=== PATIENT | male | born 1970 | race Caucasian/White ===

== ENCOUNTER 2017-01-08 10:16 | Emergency (ER) | payer MEDICAID ==
[~2017-01-08] VITALS: Ht 188 cm; Wt 99.8 kg
[~2017-01-08 10:16] MED LIST: CLON1TAB4 PO; FLUO40CA49 PO; LEVO50TA8 PO; LISI40TA4 PO; TRAZ150T77 PO
[2017-01-08 10:18] VITALS: BP 118/77; PULSE 85; RESP 16; TEMP 97.5; O2SAT 100
[2017-01-08] MEDS ORDERED: BACITRACIN 1 GM OINT TP ONE (11:00)
[2017-01-08 11:40] VITALS: BP 121/75; PULSE 85; RESP 16; TEMP 98.2; O2SAT 99
== END 2017-01-08 11:40 | disposition home or self-care (01) ==
LOC: SED 10:16
DX: T23.322A Burn of third degree of single left finger (nail) except thumb, initial encounter (principal); E03.9 Hypothyroidism, unspecified; I10 Essential (primary) hypertension; Z53.20 Procedure and treatment not carried out because of patient's decision for unspecified reasons; X19.XXXA Contact with other heat and hot substances, initial encounter; Y93.89 Activity, other specified; Y99.8 Other external cause status; Y92.89 Other specified places as the place of occurrence of the external cause
CPT/HCPCS: 99283

== ENCOUNTER 2017-01-29 17:14 | Emergency (ER) | payer MEDICAID ==
[~2017-01-29] VITALS: Ht 188 cm; Wt 97.5 kg
[2017-01-29 17:29] VITALS: BP 122/76; PULSE 91; RESP 16; TEMP 97.5; O2SAT 97
--- NOTE | 2017-01-29 17:36 | NUR ---
Patient triaged and placed in waiting room. Patient appears in no acute distress at this time. Accompanied by FRIEND, awaiting available bed, and MD notified of need for MSE.
--- NOTE | 2017-01-29 18:42 | NUR ---
Pt placed to chair hallway 1
--- NOTE | 2017-01-29 19:43 | NUR ---
PT MOVED TO BED 6
[2017-01-29] MEDS ORDERED: CLINDAMYCIN 900 mg/50mL D5W 50 ML IV ONE (19:45)
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
[2017-01-29] MEDS ORDERED: NS 500 ML IV SCH ×2 (19:56)
--- NOTE | 2017-01-29 20:00 | NUR ---
# 20 gauge angiocath placed to R AC. Use of asceptic technique. Opsite placed over site. Blood return noted. Flushed with 10 cc of normal saline. No evidence of infiltration noted. Patient tolerated well.
[2017-01-29 20:23] LABS: BASOPHILS % (AUTO) 0.5 % (0.0-2.0); EOSINOPHILS # (AUTO) 0.1 K/uL (0.0-0.4); EOSINOPHILS % (AUTO) 1.8 % (0.0-4.0); HEMATOCRIT 42.8 % (36-54); HEMOGLOBIN 14.5 g/dL (14.0-18.0); LYMPHOCYTES # (AUTO) 2.3 K/uL (1.0-5.5); LYMPHOCYTES % (AUTO) 32.6 % (20.5-51.5); MEAN CORPUSCULAR HEMOGLOBIN 30 pg (27-31); MEAN CORPUSCULAR HGB CONC 34 % (32-36); MEAN CORPUSCULAR VOLUME 88 fL (79.0-98.0); MONOCYTES # (AUTO) 0.5 K/uL (0.0-1.0); MONOCYTES % (AUTO) 7.8 % (1.7-9.3); NEUTROPHILS # (AUTO) 4.1 K/uL (1.8-7.7); NEUTROPHILS % (AUTO) 57.3 % (40.0-70.0); PLATELET COUNT (AUTO) 255 K/uL (130-430); RED BLOOD CELL COUNT(AUTO) 4.85 MIL/uL (4.2-6.2); RED CELL DISTRIBUTION WIDTH 11.8 % (9.0-15.0)
[2017-01-29 20:25] LABS: CALCIUM 8.6 mg/dL (8.4-11.0); CREATININE 0.88 mg/dL (0.55-1.30); POTASSIUM 3.9 mmol/L (3.5-5.1)
[2017-01-29 20:30] LABS: ALBUMIN 4.2 g/dL (3.4-4.8); TOTAL PROTEIN, SERUM 7.9 g/dL (6.4-8.3)
[2017-01-29] MEDS ORDERED: NACL 0.9% 1,000 ML IV ONE (20:45)
[2017-01-29] MEDS ORDERED: LEVO75TA7 PO (21:24)
[2017-01-29] MEDS ORDERED: LISI-600 PO (21:25)
[2017-01-29] MEDS ORDERED: RISP1TAB7 PO (21:26)
[2017-01-29] MEDS ORDERED: TRAZ-126 PO (21:26)
--- NOTE | 2017-01-29 21:28 | NUR ---
MEDICINE RECONCILIATION DONE AND UPDATED
--- NOTE | 2017-01-29 22:00 | NUR ---
Pt is resting comfortably. VSS. AAOx4. No distress noted.
[2017-01-29] MEDS ORDERED: DIPH-TET-PERTUS Vaccine 0.5 ML VIAL (ADACEL) I.M. ONE (23:15)
--- NOTE | 2017-01-30 | NUR ---
Pt is resting comfortably. VSS. AAOx4. No distress noted.
[2017-01-30 00:20] VITALS: BP 125/76; PULSE 89; RESP 16; TEMP 98.3; O2SAT 97
--- NOTE | 2017-01-30 00:20 | NUR ---
Patient to be transferred to [facility]. Is being transferred due to higher level of care. Receiving facility has accepting physician and available space. ER physician has signed transfer form. Patient or responsible democrat has agreed to transfer and signed form. Patient belongings inventoried and will be sent with patient. Copy of nursing notes, lab reports, EKG, Physicians Orders and X-rays to be sent with patient. Report called to Delores PHOENIX at receiving facility. Receiving physician is Dr. Herrera. [facility] on scene. ETA is 45 min.
== END 2017-01-30 00:20 | disposition short-term general hospital (02) ==
LOC: SED 17:14
DX: T23.322A Burn of third degree of single left finger (nail) except thumb, initial encounter (principal); E87.1 Hypo-osmolality and hyponatremia; I10 Essential (primary) hypertension; F10.20 Alcohol dependence, uncomplicated; E03.9 Hypothyroidism, unspecified; X19.XXXA Contact with other heat and hot substances, initial encounter; Y93.89 Activity, other specified; Y99.8 Other external cause status; Y92.89 Other specified places as the place of occurrence of the external cause
CPT/HCPCS: 16020; 29125; 36415; 80053; 85025; 87040; 87070; 87186; 96361; 96365; 99285; J3490; J7030